=== PATIENT | female | born 1990 | race Caucasian/White ===

== ENCOUNTER 2017-06-10 17:48 | Emergency (ER) | payer SELFPAY ==
[~2017-06-10 17:48] MED LIST: AMOXICILLIN PO; AUGMENTIN PO; BACLOFEN10 MG PO; BACTRIM DS TABL1 TAB PO; EFFEXOR XR PO; FLONASE16 GM; MACROBID100 MG PO; NO MEDICATIONS; PRENATAL1 TA1 PO; PYRIDIUM PO; TYLENOL #3 PO; ZYRTEC PO
[2017-06-10 18:10] LABS: URINE SOURCE CLEAN CATCH
[2017-06-10 18:14] LABS: URINE APPEARANCE SL CLOUDY; URINE BILIRUBIN NEG (NEG); URINE BLOOD 2+ (NEG); URINE COLOR YELLOW; URINE GLUCOSE NEG (NORM); URINE KETONE NEG (NEG); URINE LEUKOCYTE ESTERASE TRACE (NEG); URINE NITRATE NEG (NEG); URINE PH 7.5 (5-8); URINE PROTEIN NEG (NEG); URINE UROBILINOGEN 0.2 MG/DL (NORM)
[2017-06-10 18:20] LABS: MICRO INDICATED? YES
[2017-06-10 18:22] LABS: CULTURE INDICATED? YES; URINE BACTERIA 1+ (NEG); URINE SQUAMOUS EPITHELIAL CELL OCCAS /[HPF]
[2017-06-13 10:54] LABS: CHLAMYDIA TRACH Not Detected (Not Detected); N GONOR Not Detected (Not Detected)
== END 2017-06-10 19:04 | disposition home or self-care (01) ==
LOC: SED 17:48
PROVIDERS: Physician Assistant
DX: N95.2 Postmenopausal atrophic vaginitis (principal); R30.0 Dysuria; N30.00 Acute cystitis without hematuria; K21.9 Gastro-esophageal reflux disease without esophagitis; F17.210 Nicotine dependence, cigarettes, uncomplicated; Z88.5 Allergy status to narcotic agent; Z88.8 Allergy status to other drugs, medicaments and biological substances
CPT/HCPCS: 81003; 84703; 87086; 87088; 87186; 87491; 87591; 87808; 87905; 99283